=== PATIENT | female | born 1985 | race Caucasian/White ===

== ENCOUNTER 2018-02-04 17:23 | Emergency (ER) | payer SELFPAY ==
[2018-02-04] MEDS ORDERED: RINGERS SOLUTION,LACTATED 1,000 ML IV PRN (19:12)
[2018-02-04] MEDS ORDERED: DIPHENHYDRAMINE HCL 50 MG/ML VIAL IV ONE (19:12)
[2018-02-04] MEDS ORDERED: METOCLOPRAMIDE HCL INJ/PF 10 MG/2 ML SDV IV ONE (19:12)
--- NOTE | 2018-02-04 19:14 | ER Document Report ---
ED Medical Screen (RME) - General Chief Complaint: Nausea/Vomiting/Diarrhea Stated Complaint: VOMITING Time Seen by Provider: 02/04/18 19:11 Mode of Arrival: Ambulatory Information source: Patient Notes: This is a 32-year-old female with no significant medical problems who presents to the emergency room with nausea, vomiting and watery diarrhea for the past 2 days. Patient thinks she may have gotten food poisoning while out eating. She denies any significant abdominal pain. She does admit to intermittent cramping. She does not remember when her last period was. No significant medical problems. Her medicines involve probiotics and herbals. TRAVEL OUTSIDE OF THE [place] IN LAST 30 DAYS: No - Related Data Allergies/Adverse Reactions: No Known Allergies Allergy (Verified 09/07/15 06:03) Past Medical History Past Surgical History: Reports: Hx Cholecystectomy - 07/08, Hx Gynecologic Surgery - Immunizations Hx Diphtheria, Pertussis, Tetanus Vaccination: Yes - 12/30/12 Physical Exam - Vital signs Vitals: Temp Pulse Resp BP Pulse Ox 97.2 F 125 H 14 114/76 98 02/04/18 17:35 02/04/18 17:35 02/04/18 17:35 02/04/18 17:35 02/04/18 17:35 Course - Vital Signs Vital signs: Temp Pulse Resp BP Pulse Ox 97.2 F 125 H 14 114/76 98 02/04/18 17:35 02/04/18 17:35 02/04/18 17:35 02/04/18 17:35 02/04/18 17:35 Doctor's Discharge - Discharge Referrals: CHANDU BERNSTEIN MD [Primary Care Provider] - Follow up as needed
[2018-02-04 19:53] LABS: ABSOLUTE EOSINOPHILS # (AUTO) 0.3 10^3/uL (0.0-0.6); ABSOLUTE LYMPHOCYTES (AUTO) 1.2 10^3/uL (0.5-4.7); ABSOLUTE MONOCYTES (AUTO) 0.6 10^3/uL (0.1-1.4); ABSOLUTE NEUT (AUTO) 15.5 10^3/uL (1.7-8.2); BASOPHILS % (AUTO) 0.3 % (0-2); EOSINOPHILS % (AUTO) 1.7 % (0-6); HEMATOCRIT 49.7 % (36.0-47.0); HEMOGLOBIN 17.1 g/dL (12.0-15.5); LYMPHOCYTES % (AUTO) 6.6 % (13-45); MEAN CORPUSCULAR HEMOGLOBIN 29.4 pg (27.0-33.4); MEAN CORPUSCULAR HGB CONC 34.4 g/dL (32.0-36.0); MEAN CORPUSCULAR VOLUME 86 fl (80-97); MONOCYTES % (AUTO) 3.4 % (3-13); PLATELET COUNT 292 10^3/uL (150-450); RED BLOOD COUNT 5.82 10^6/uL (3.72-5.28); RED CELL DISTRIBUTION WIDTH 13.5 % (11.5-14.0); TOTAL CELLS COUNTED % (AUTO) 100 %; WHITE BLOOD COUNT 17.6 10^3/uL (4.0-10.5)
[2018-02-04 20:08] LABS: APPEARANCE,URINE SLIGHTLY-CLOUDY; BILIRUBIN,URINE NEGATIVE (NEGATIVE); COLOR,URINE YELLOW; GLUCOSE, URINE NEGATIVE (NEGATIVE); KETONES,URINE NEGATIVE (NEGATIVE); LEUKOCYTE ESTERASE,URINE NEGATIVE (NEGATIVE); NITRITE,URINE NEGATIVE (NEGATIVE); PROTEIN,URINE 30 mg/dL (NEGATIVE); URINE SPECIFIC GRAVITY 1.026; UROBILINOGEN,URINE NEGATIVE mg/dL (<2.0)
--- NOTE | 2018-02-04 20:19 | ER Document Report ---
ED General - General Chief Complaint: Nausea/Vomiting/Diarrhea Stated Complaint: VOMITING Time Seen by Provider: 02/04/18 19:11 Mode of Arrival: Ambulatory TRAVEL OUTSIDE OF THE [place] IN LAST 30 DAYS: No - HPI Patient complains to provider of: diarrhea, nausea, vomiting Notes: 32-year-old female with no past medical history presents to the emergency department for vomiting, diarrhea, nausea, dizziness, abdominal cramping due to possible food poisoning. She says that this is been happening for 2 days and became lethargic which prompted her to get seen. It started with a sour stomach on Sunday evening followed by nausea, vomiting, diarrhea on Sunday morning. She has endorsed greater than 12 episodes of diarrhea and total and 4- 5 episodes of vomiting. She denies fevers endorses dizziness and lightheadedness, endorses lethargy. She endorses abdominal cramping, and she endorses a lot of abdominal bloating. - Related Data Allergies/Adverse Reactions: No Known Allergies Allergy (Verified 09/07/15 06:03) Past Medical History - General Information source: Patient - Social History Smoking Status: Current Every Day Smoker Chew tobacco use (# tins/day): No Frequency of alcohol use: Occasional Drug Abuse: None Family History: Reviewed & Not Pertinent Patient has suicidal ideation: No Patient has homicidal ideation: No Renal/ Medical History: Denies: Hx Peritoneal Dialysis Past Surgical History: Reports: Hx Cholecystectomy - 07/08, Hx Gynecologic Surgery - Immunizations Hx Diphtheria, Pertussis, Tetanus Vaccination: Yes - 12/30/12 Review of Systems - Review of Systems Constitutional: See HPI EENT: See HPI Cardiovascular: See HPI Respiratory: See HPI Gastrointestinal: No symptoms reported, See HPI Genitourinary: See HPI Female Genitourinary: No symptoms reported Musculoskeletal: No symptoms reported Skin: No symptoms reported Hematologic/Lymphatic: No symptoms reported Neurological/Psychological: No symptoms reported Physical Exam - Vital signs Vitals: Temp Pulse Resp BP Pulse Ox 97.2 F 125 H 14 114/76 98 02/04/18 17:35 02/04/18 17:35 02/04/18 17:35 02/04/18 17:35 02/04/18 17:35 Interpretation: Normal - General General appearance: Appears well, Alert - HEENT Head: Normocephalic, Atraumatic Eyes: Normal Pupils: PERRL - Respiratory Respiratory status: No respiratory distress Chest status: Nontender Breath sounds: Normal Chest palpation: Normal - Cardiovascular Rhythm: Regular Heart sounds: Normal auscultation Murmur: No - Abdominal Inspection: Normal Distension: No distension Bowel sounds: Normal Tenderness: Nontender Organomegaly: No organomegaly - Back Back: Normal, Nontender - Extremities General upper extremity: Normal inspection, Nontender, Normal color, Normal ROM , Normal temperature General lower extremity: Normal inspection, Nontender, Normal color, Normal ROM , Normal temperature, Normal weight bearing. No: Karley's sign - Neurological Neuro grossly intact: Yes Cognition: Normal Orientation: AAOx4 [place] Coma Scale Eye Opening: Spontaneous [place] Coma Scale Verbal: Oriented Ting Coma Scale Motor: Obeys Commands Ting Coma Scale Total: 15 Speech: Normal Motor strength normal: LUE, RUE, LLE, RLE Sensory: Normal - Psychological Associated symptoms: Normal affect, Normal mood - Skin Skin Temperature: Warm Skin Moisture: Dry Skin Color: Normal Course - Re-evaluation Re-evalutation: 02/04/18 22:31 Reglan given and 1 L Ringer's lactate given. Patient responded well to medication and the fluid. She endorses feeling much better. She does not have nausea. She is no longer tachycardic. Heart rate 72. At this point I discussed with patient that she most likely either ingested a toxin on Sunday because of the abrupt onset of the symptoms versus an organism that would take a couple of days to manifest. Alternatively, this could be a viral gastroenteritis that just happened to coincide with her meal. In any event she is stable for discharge and agrees with plan. - Vital Signs Vital signs: Temp Pulse Resp BP Pulse Ox 97.2 F 125 H 16 114/76 98 02/04/18 17:35 02/04/18 17:35 02/04/18 19:02 02/04/18 17:35 02/04/18 17:35 - Laboratory Result Diagrams: 02/04/18 19:20 02/04/18 20:40 Laboratory results interpreted by me: 02/04/18 02/04/18 02/04/18 19:20 19:44 20:40 WBC 17.6 H RBC 5.82 H Hgb 17.1 H Hct 49.7 H Seg Neutrophils % 88.0 H Lymphocytes % 6.6 L Absolute Neutrophils 15.5 H Carbon Dioxide 20 L Glucose 127 H Calcium 11.0 H Urine Protein 30 H Urine Blood SMALL H Discharge - Discharge Clinical Impression: Diarrhea Qualifiers: Diarrhea type: presumed infectious Qualified Code(s): R19.7 - Diarrhea, unspecified Vomiting Qualifiers: Vomiting type: unspecified Vomiting Intractability: non-intractable Nausea presence: with nausea Qualified Code(s): R11.2 - Nausea with vomiting, unspecified Condition: Good Disposition: HOME, SELF-CARE Instructions: Antinausea Medication ([facility]), Diarrhea, Nonspecific ([facility]) Additional Instructions: You were seen in the emergency department this evening for vomiting and diarrhea. There are 2 possible reasons why he had the symptoms. The first is that you may have ingested a toxin as you stated the symptoms started so quickly. If it was a concerning infectious organism symptoms were not manifest for a couple of days. Typically these viruses last for 3-4 days. The second possible reason for your symptoms is you just might have a viral gastroenteritis that just happened to coincide with the meal you ate. Either way, treatment will be the same for both. You should maintain a diet of clear liquids and bland foods for the next couple of days. You can drink Pedialyte mixed with water [id number]. We have also prescribed you with a medication called Zofran. It is an antinausea medication. You can take it prior to eating if you are having symptoms of nausea. If you develop fever, continued profuse diarrhea, bloody diarrhea, or intractable vomiting please immediately return to the emergency room. Please follow-up with your primary doctor in the next 24-48 hours. Referrals: CHANDU BERNSTEIN MD [ACTIVE STAFF] - Follow up as needed
[2018-02-04 21:24] LABS: ALANINE AMINOTRANSFERASE 22 U/L (9-52); ALBUMIN 4.8 g/dL (3.5-5.0); ALKALINE PHOSPHATASE 61 U/L (38-126); ANION GAP 16 (5-19); ASPARTATE AMINO TRANSFERASE 16 U/L (14-36); BILIRUBIN,DIRECT 0.2 mg/dL (0.0-0.4); BILIRUBIN,TOTAL 0.5 mg/dL (0.2-1.3); BLOOD UREA NITROGEN 19 mg/dL (7-20); CARBON DIOXIDE 20 mmol/L (22-30); CHLORIDE 106 mmol/L (98-107); GLUCOSE 127 mg/dL (75-110); POTASSIUM 4.3 mmol/L (3.6-5.0); SODIUM 141.8 mmol/L (137-145); TOTAL PROTEIN 7.8 g/dL (6.3-8.2)
[2018-02-04] MEDS ORDERED: ONDANSETRON 4 MG TAB.RAPDIS PO ONE (22:37)
[2018-02-04] MEDS ORDERED: ONDANSETRON ODT 4 MG TAB (6 TAB/ER DISP) PO PRN (22:52)
[2018-02-04 23:24] VITALS: BP 101/78
== END 2018-02-04 23:00 | disposition home or self-care (01) ==
LOC: ER 17:23
DX: R11.2 Nausea with vomiting, unspecified (principal); R19.7 Diarrhea, unspecified; R10.9 Unspecified abdominal pain; R53.83 Other fatigue; F17.200 Nicotine dependence, unspecified, uncomplicated
CPT/HCPCS: 99284; 96361; 96374; 96375; 36415; 84702; 85025; 80053; 81001; J1200; S0119; J2765; J7120